=== PATIENT | female | born 1955 | race Caucasian/White ===

== ENCOUNTER 2017-07-25 12:27 | Outpatient (CLI) | payer MEDICARE, MEDICAID ==
[2017-07-25 13:21] LABS: Hemoglobin 13.5 g/dL (12.0-16.0)
[2017-07-25 13:36] LABS: Albumin 3.9 g/dL (3.4-4.8); Anion Gap 13 mmol/L (10-20); BUN (Urea Nitrogen) 19 mg/dL (9.8-20.1); Calc. Creatinine Clearance 0 mL/min (70-130); Calcium 9.4 mg/dL (7.8-10.44); Carbon Dioxide 22 mmol/L (23-31); Chloride 108 mmol/L (98-107); Estimated GFR-MDRD 42; Glucose 124 mg/dL (80-115); Magnesium 1.9 mg/dL (1.6-2.6); Phosphorus 2.9 mg/dL (2.3-4.7); Potassium 3.7 mmol/L (3.5-5.1); Sodium 139 mmol/L (136-145)
[2017-07-25 18:45] LABS: Protein, Urine Random Quant Less than 10 mg/dL
== END 2017-07-25 12:28 | disposition home or self-care (01) ==
LOC: MADLAB 12:27
PROVIDERS: ATTEND Internal Medicine Nephrology
DX: I12.9 Hypertensive chronic kidney disease with stage 1 through stage 4 chronic kidney disease, or unspecified chronic kidney disease (principal); N18.3 Chronic kidney disease, stage 3 (moderate)
CPT/HCPCS: 36415; 80048; 82040; 82306; 82570; 83735; 83970; 84100; 84156; 85014; 85018

== ENCOUNTER 2017-09-10 16:53 | Emergency (ER) | payer MEDICARE, MEDICAID ==
[~2017-09-10 16:53] MED LIST: Sodium Chloride 0.9% 1,000 ML BAG ONE
[2017-09-10 17:37] LABS: #Basophils 0.1 thou/uL (0.0-0.2); #Eosinphils 0.3 thou/uL (0.0-0.7); #Lymphocytes 1.8 thou/uL (1.20-3.40); #Monocytes 0.9 thou/uL (0.11-0.59); #Neutrophils 10.7 thou/uL (1.40-6.50); %Basophils 0.8 % (0.0-1.0); %Eosinophils 2.2 % (0.0-10.0); %Lymphocytes 13.2 % (21.0-51.0); %Monocytes 6.3 % (0.0-10.0); %Neutrophils 77.5 % (42.0-75.0); Hemoglobin 13.5 g/dL (12.0-16.0); Mean Corpuscular HGB CONC 32.5 g/dL (32.0-36.0); Mean Corpuscular Hemoglobin 30.3 pg (27.0-31.0); Mean Corpuscular Volume 93.3 fl (81.0-99.0); Mean Platelet Volume 9.8 fL (7.4-10.4); Platelet Count 174 thou/uL (130-400); RBC Distribution Width 12.7 % (11.5-14.5); Red Blood Cell (RBC) Count 4.44 mill/uL (4.20-5.40); White Blood Cell (WBC) Count 13.8 thou/uL (4.8-10.8)
[2017-09-10 17:47] LABS: CKMB 1.4 ng/mL (0-6.6); Troponin I Less than 0.010 ng/mL (< 0.028)
[2017-09-10 17:50] LABS: ALT (SGPT) 20 U/L (8-55); AST (SGOT) 9 U/L (5-34); Albumin 3.7 g/dL (3.4-4.8); Alkaline Phosphatase 111 U/L (40-150); Anion Gap 15 mmol/L (10-20); BUN (Urea Nitrogen) 12 mg/dL (9.8-20.1); Calc. Creatinine Clearance 0 mL/min (70-130); Calcium 9.5 mg/dL (7.8-10.44); Carbon Dioxide 24 mmol/L (23-31); Chloride 104 mmol/L (98-107); Estimated GFR-MDRD 39; Globulin 3.4 g/dL (2.4-3.5); Glucose 230 mg/dL (80-115); Lipase 29 U/L (8-78); Potassium 3.9 mmol/L (3.5-5.1); Protein, Total 7.1 g/dL (6.0-8.3); Sodium 139 mmol/L (136-145)
[2017-09-10] MEDS ORDERED: Ondansetron HCl/PF 4 MG/2 ML Vial ONE (18:13)
[2017-09-10 18:35] LABS: Bilirubin Negative (Negative); Blood, Urine Negative (Negative); Clarity Clear (Clear); Glucose, Urine (Dipstick) Negative (Negative); Leukocyte Negative (Negative); Nitrite Negative (Negative); Protein, Urine (Dipstick) 30 mg/dL (Neg-Trace); Urobilinogen 0.2 mg/dL (0.2-1.0)
[2017-09-10] MEDS ORDERED: Morphine 10 MG/ML VIAL ONE (18:39)
[2017-09-10 18:43] LABS: Bacteria/HPF 1+ HPF (None Seen); RBC/HPF 0-3 HPF (0-3); WBC/HPF 0-3 HPF (0-3)
--- NOTE | 2017-09-10 18:47 | RAD ---
PORTABLE CHEST ONE VIEW: 09/10/17 at 5:57 p.m. HISTORY: Dyspnea. FINDINGS: Comparison is made with the exam of 11/02/15. The heart size is normal. There is continued elevation of the right hemidiaphragm. No focal areas of consolidation, pneumothorax, parris pulmonary edema or pleural effusions are seen. IMPRESSION: No acute process. POS: [facility]
[2017-09-10] MEDS ORDERED: traMADol HCl 50 MG TAB ONE ×2 (19:54→20:02)
[2017-09-10] MEDS ORDERED: cefTRIAXone\\ROCEPHIN 1 GM VIAL ONE (19:55)
== END 2017-09-10 20:46 | disposition home or self-care (01) ==
LOC: MADERS 16:53
DX: J44.1 Chronic obstructive pulmonary disease with (acute) exacerbation (principal); J20.9 Acute bronchitis, unspecified; K52.9 Noninfective gastroenteritis and colitis, unspecified; G47.30 Sleep apnea, unspecified; E11.9 Type 2 diabetes mellitus without complications; I10 Essential (primary) hypertension; J45.909 Unspecified asthma, uncomplicated; F41.9 Anxiety disorder, unspecified; F32.9 Major depressive disorder, single episode, unspecified; F17.210 Nicotine dependence, cigarettes, uncomplicated
CPT/HCPCS: 36415; 71010; 80053; 81003; 81015; 82553; 83605; 83690; 83880; 84484; 85025; 85379; 87086; 93005; 96361; 96365; 96375; J0696; J2270; J2405; J7050

== ENCOUNTER 2018-02-22 19:33 | Emergency (ER) | payer MEDICARE, MEDICAID ==
[~2018-02-22 19:33] MED LIST changes: +Donnatal Elixir 16.2 MG/5 ML UDCUP ONE; +Iopamidol 370 76% 100 ML VIAL ONE; +Sodium Chloride 0.9% 100 ML BAG ONE
[2018-02-22] MEDS ORDERED: Mag-Al Plus 1200 MG/1200 MG/120 MG/30 ML UDCUP ONE (20:14)
[2018-02-22] MEDS ORDERED: Ondansetron ODT 4 MG TAB ONE (20:14)
[2018-02-22] MEDS ORDERED: Lidocaine Viscous Sol 2% 15 ml UD Cup ONE (20:14)
[2018-02-22] MEDS ORDERED: Donnatal Elixir 16.2 MG/5 ML UDCUP ONE (20:14)
[2018-02-22 20:34] LABS: #Basophils 0.1 thou/uL (0.0-0.2); #Eosinphils 0.5 thou/uL (0.0-0.7); #Lymphocytes 1.5 thou/uL (1.20-3.40); #Monocytes 1.4 thou/uL (0.11-0.59); #Neutrophils 13.2 thou/uL (1.40-6.50); %Basophils 0.8 % (0.0-1.0); %Eosinophils 3.2 % (0.0-10.0); %Lymphocytes 8.8 % (21.0-51.0); %Monocytes 8.3 % (0.0-10.0); Hemoglobin 12.9 g/dL (12.0-16.0); Mean Corpuscular HGB CONC 31.7 g/dL (32.0-36.0); Mean Corpuscular Hemoglobin 29.6 pg (27.0-31.0); Mean Corpuscular Volume 93.4 fl (81.0-99.0); Mean Platelet Volume 8.9 fL (7.4-10.4); Platelet Count 296 thou/uL (130-400); RBC Distribution Width 15.4 % (11.5-14.5); Red Blood Cell (RBC) Count 4.36 mill/uL (4.20-5.40); White Blood Cell (WBC) Count 16.7 thou/uL (4.8-10.8)
[2018-02-22 20:43] LABS: Clarity Hazy (Clear); Glucose, Urine (Dipstick) 100 mg/dL (Negative); Leukocyte Negative (Negative); Nitrite Negative (Negative); Protein, Urine (Dipstick) 100 mg/dL (Neg-Trace); pH, Urine 5.5 (5.0-9.0)
[2018-02-22 20:44] LABS: Bilirubin Large (Negative); Blood, Urine Small (Negative)
[2018-02-22 20:45] LABS: Bacteria/HPF 3+ HPF (None Seen)
[2018-02-22 20:52] LABS: CKMB 0.4 ng/mL (0-6.6); Troponin I Less than 0.010 ng/mL (< 0.028)
[2018-02-22] MEDS ORDERED: Pantoprazole 40 MG VIAL ONE (21:10)
[2018-02-22] MEDS ORDERED: Piperacillin/Tazobactam 4.5 GM VIAL ONE (21:10)
--- NOTE | 2018-02-22 21:10 | RAD ---
ACUTE ABDOMINAL SERIES: Indication: Abdominal pain. FINDINGS: Lungs are clear. Cardiomediastinal silhouette is within normal limits. No pneumoperitoneum is evident . Bowel gas pattern is nonspecific but without evidence of obstruction. No suspicious calcification i s evident. No acute osseous abnormality is evident. IMPRESSION: No acute abnormality. POS: [facility]
[2018-02-22] MEDS ORDERED: Promethazine HCl 25 MG/ML VIAL ONE (21:18)
[2018-02-22 21:20] LABS: ALT (SGPT) 173 U/L (8-55); AST (SGOT) 192 U/L (5-34); Albumin 3.3 g/dL (3.4-4.8); Alkaline Phosphatase 748 U/L (40-150); Anion Gap 18 mmol/L (10-20); BUN (Urea Nitrogen) 18 mg/dL (9.8-20.1); Bilirubin, Total 17.1 mg/dL (0.2-1.2); Calc. Creatinine Clearance 0 mL/min (70-130); Calcium 10.2 mg/dL (7.8-10.44); Carbon Dioxide 22 mmol/L (23-31); Chloride 102 mmol/L (98-107); Estimated GFR-MDRD 36; Globulin 4.7 g/dL (2.4-3.5); Glucose 138 mg/dL (80-115); Sodium 138 mmol/L (136-145)
[2018-02-22 21:24] LABS: Lipase 7712 U/L (8-78)
--- NOTE | 2018-02-22 22:48 | CT ---
CT OF THE ABDOMEN AND PELVIS WITH IV CONTRAST: Indication: Abdominal pain. FINDINGS: There is marked intrahepatic and extrahepatic biliary ductal dilatation. There is a 6 mm calculus wit hin the distal common bile duct. No main pancreatic ductal dilatation is evident. No peripancreatic i nflammatory stranding is grossly evident. The spleen measures 1.6 cm. There are two separate cysts in volving the superior pole of the right kidney measuring 2.4 and 2 cm respectively. Left kidney is nor mal appearing. Appendix is not definitely seen. There is a lobulated mixed solid and cystic lesion involving the lef t adnexa measurin 8.3 cm. The ureters, bladder, rectum, perirectal soft tissues unremarkable. Scattered degenerative and osteoarthritic change. No acute osseous abnormality is evident. IMPRESSION: 1. Choledocholithiasis with prominent intrahepatic and extrahepatic biliary ductal dilation. GI consu ltation is recommended. 2. Mixed solid and cystic lesion involving the left adnexa. Follow up pelvic ultrasound is recommende d for additional characterization. This could be performed after the patient's acute symptoms have ab ated. 3. Nonvisualization of the appendix. 4. Right renal cysts. 5. Colonic diverticulosis. POS: [facility]
== END 2018-02-22 22:16 | disposition short-term general hospital (02) ==
LOC: MADERS 19:33
DX: K83.1 Obstruction of bile duct (principal); K85.10 Biliary acute pancreatitis without necrosis or infection; E11.9 Type 2 diabetes mellitus without complications; I10 Essential (primary) hypertension; J44.9 Chronic obstructive pulmonary disease, unspecified; F41.9 Anxiety disorder, unspecified; F32.9 Major depressive disorder, single episode, unspecified; G47.30 Sleep apnea, unspecified; F17.210 Nicotine dependence, cigarettes, uncomplicated; Z79.84 Long term (current) use of oral hypoglycemic drugs; Z79.899 Other long term (current) drug therapy
CPT/HCPCS: 36415; 74022; 74177; 80053; 81003; 81015; 82150; 82553; 83690; 84484; 85025; 87086; 96365; 96375; C9113; J2543; J2550; J7050; Q0162

== ENCOUNTER 2018-08-09 19:36 | Emergency (ER) | payer MEDICARE, MEDICAID | END 2018-08-09 20:08 | disposition home or self-care (01) | LOC: MADERS 19:36 | DX: M25.542 Pain in joints of left hand (principal); G47.30 Sleep apnea, unspecified; E11.9 Type 2 diabetes mellitus without complications; I10 Essential (primary) hypertension; J44.9 Chronic obstructive pulmonary disease, unspecified; F41.9 Anxiety disorder, unspecified; F32.9 Major depressive disorder, single episode, unspecified; F17.210 Nicotine dependence, cigarettes, uncomplicated; Z79.84 Long term (current) use of oral hypoglycemic drugs; Z79.899 Other long term (current) drug therapy | CPT/HCPCS: 99281 ==

== ENCOUNTER 2018-12-15 10:58 | Emergency (ER) | payer MEDICARE, MEDICAID ==
[2018-12-15] MEDS ORDERED: Insulin Regular 300 UNITS/3 ML VIAL ONE (11:20)
[2018-12-15] MEDS ORDERED: Sodium Chloride 0.9% 1,000 ML ONE ×2 (11:20→13:28)
[2018-12-15 12:04] LABS: #Basophils 0.2 thou/uL (0.0-0.2); #Eosinphils 0.3 thou/uL (0.0-0.7); #Lymphocytes 2.4 thou/uL (1.20-3.40); #Monocytes 0.5 thou/uL (0.11-0.59); #Neutrophils 4.6 thou/uL (1.40-6.50); %Basophils 1.9 % (0.0-1.0); %Eosinophils 3.8 % (0.0-10.0); %Lymphocytes 30.2 % (21.0-51.0); %Monocytes 6.5 % (0.0-10.0); %Neutrophils 57.6 % (42.0-75.0); Hemoglobin 14.4 g/dL (12.0-16.0); Mean Corpuscular HGB CONC 33.2 g/dL (32.0-36.0); Mean Corpuscular Hemoglobin 31.2 pg (27.0-31.0); Mean Platelet Volume 11.6 fL (7.4-10.4); Platelet Count 153 thou/uL (130-400); RBC Distribution Width 12.3 % (11.5-14.5); Red Blood Cell (RBC) Count 4.63 mill/uL (4.20-5.40); White Blood Cell (WBC) Count 7.9 thou/uL (4.8-10.8)
[2018-12-15 12:17] LABS: Bilirubin Negative (Negative); Blood, Urine Small (Negative); Clarity Cloudy (Clear); Glucose, Urine (Dipstick) >=1000 mg/dL (Negative); Leukocyte Negative (Negative); Nitrite Negative (Negative); Protein, Urine (Dipstick) Negative (Neg-Trace); Specific Gravity, Urine 1.015 (1.005-1.030); pH, Urine 5.5 (5.0-9.0)
[2018-12-15 12:18] LABS: ALT (SGPT) 28 U/L (8-55); AST (SGOT) 20 U/L (5-34); Albumin 4.2 g/dL (3.4-4.8); Alkaline Phosphatase 122 U/L (40-150); Anion Gap 15 mmol/L (10-20); BUN (Urea Nitrogen) 17 mg/dL (9.8-20.1); Bilirubin, Total 1.2 mg/dL (0.2-1.2); Calc. Creatinine Clearance 0 mL/min (70-130); Calcium 9.6 mg/dL (7.8-10.44); Carbon Dioxide 24 mmol/L (23-31); Chloride 102 mmol/L (98-107); Estimated GFR-MDRD 41; Globulin 3.1 g/dL (2.4-3.5); Glucose 455 mg/dL (80-115); Potassium 4.3 mmol/L (3.5-5.1); Protein, Total 7.3 g/dL (6.0-8.3); Sodium 137 mmol/L (136-145)
[2018-12-15 12:22] LABS: WBC/HPF 0-3 HPF (0-3)
[2018-12-15 12:23] LABS: Bacteria/HPF 2+ HPF (None Seen)
== END 2018-12-15 14:50 | disposition home or self-care (01) ==
LOC: MADERS 10:58
DX: E11.65 Type 2 diabetes mellitus with hyperglycemia (principal); J44.9 Chronic obstructive pulmonary disease, unspecified; F41.9 Anxiety disorder, unspecified; F32.9 Major depressive disorder, single episode, unspecified; I10 Essential (primary) hypertension; Z71.6 Tobacco abuse counseling; Z79.899 Other long term (current) drug therapy; Z79.84 Long term (current) use of oral hypoglycemic drugs
CPT/HCPCS: 36415; 36416; 80053; 81003; 81015; 82010; 83605; 85025; 96374; 96376; 99406; J1815; J7050

== ENCOUNTER 2018-12-19 18:23 | Emergency (ER) | payer MEDICARE, MEDICAID ==
[2018-12-19] MEDS ORDERED: Sodium Chloride 0.9% 1,000 ML ONE ×2 (19:08→19:43)
[2018-12-19] MEDS ORDERED: Ondansetron PF 4 MG/2 ML Vial ONE (19:08)
--- NOTE | 2018-12-19 19:16 | RAD ---
RADIOGRAPH CHEST 1 VIEW: 12/19/18 HISTORY: 63-year-old female with dyspnea. FINDINGS: There are no air space densities, pulmonary edema, pneumothorax, or cardiomegaly. The lateral costop hrenic angles are sharp. IMPRESSION: No acute cardiopulmonary findings. jn [] POS: [facility]
[2018-12-19 19:34] LABS: ALT (SGPT) 24 U/L (8-55); AST (SGOT) 14 U/L (5-34); Albumin 4.1 g/dL (3.4-4.8); Alkaline Phosphatase 119 U/L (40-150); Anion Gap 17 mmol/L (10-20); BUN (Urea Nitrogen) 14 mg/dL (9.8-20.1); Calc. Creatinine Clearance 0 mL/min (70-130); Calcium 10.1 mg/dL (7.8-10.44); Carbon Dioxide 23 mmol/L (23-31); Chloride 102 mmol/L (98-107); Estimated GFR-MDRD 39; Globulin 3.1 g/dL (2.4-3.5); Glucose 521 mg/dL (80-115); Magnesium 1.5 mg/dL (1.6-2.6); Potassium 4.3 mmol/L (3.5-5.1); Protein, Total 7.2 g/dL (6.0-8.3); Sodium 138 mmol/L (136-145)
[2018-12-19] MEDS ORDERED: Insulin Regular 300 UNITS/3 ML VIAL ONE (19:42)
[2018-12-19 19:43] LABS: Base Excess-Venous -0.3 mmol/L (0 (+/- 2.5)); Bicarbonate (HCO3v) 25.6 mmol/L (22.0-29.0); CO2 Tension (PvCO2) 45.6 mmHg (41.0-51.0); Calcium, Ionized 1.19 mmol/L (1.12-1.32); O2 Tension (PvO2) 52.6 mmHg (35.0-45.0); Potassium 4.3 mmol/L (3.4-4.7); pH (Venous) 7.358 (7.35-7.45)
[2018-12-19 19:44] LABS: Hemoglobin 14.1 g/dL (12.0-16.0); Mean Corpuscular HGB CONC 32.6 g/dL (32.0-36.0); Mean Corpuscular Hemoglobin 31.1 pg (27.0-31.0); Mean Corpuscular Volume 95.3 fL (78.0-98.0); Mean Platelet Volume 12.2 fL (7.4-10.4); Platelet Count 134 thou/uL (130-400); RBC Distribution Width 12.1 % (11.5-14.5); Red Blood Cell (RBC) Count 4.54 mill/uL (4.20-5.40); White Blood Cell (WBC) Count 7.1 thou/uL (4.8-10.8)
[2018-12-19 19:53] LABS: Phosphorus 3.2 mg/dL (2.3-4.7)
[2018-12-19 19:54] LABS: #Basophils 0.1 thou/uL (0.0-0.2); #Eosinphils 0.3 thou/uL (0.0-0.7); #Lymphocytes 1.7 thou/uL (1.20-3.40); #Monocytes 0.5 thou/uL (0.11-0.59); #Neutrophils 4.5 thou/uL (1.40-6.50); %Basophils 1.6 % (0.0-1.0); %Eosinophils 4.6 % (0.0-10.0); %Lymphocytes 24.2 % (21.0-51.0); %Monocytes 7.3 % (0.0-10.0); %Neutrophils 62.4 % (42.0-75.0)
== END 2018-12-19 22:10 | disposition home or self-care (01) ==
LOC: MADERS 18:23
DX: E11.65 Type 2 diabetes mellitus with hyperglycemia (principal); J44.9 Chronic obstructive pulmonary disease, unspecified; I10 Essential (primary) hypertension; F41.9 Anxiety disorder, unspecified; F32.9 Major depressive disorder, single episode, unspecified; F17.210 Nicotine dependence, cigarettes, uncomplicated; Z79.899 Other long term (current) drug therapy; Z79.84 Long term (current) use of oral hypoglycemic drugs
CPT/HCPCS: 36416; 71045; 80053; 82330; 82803; 83690; 83735; 84100; 84484; 85025; 93005; 94640; 94760; 96361; 96374; 96375; J1815; J2405; J7050; J7620

== ENCOUNTER 2022-12-30 11:36 | Outpatient (CLI) | payer MEDICARE, MEDICAID ==
[2022-12-30 11:54] LABS: #Basophils 0.1 thou/uL (0.0-0.2); #Eosinphils 0.3 thou/uL (0.0-0.7); #Lymphocytes 1.4 thou/uL (1.20-3.40); #Monocytes 0.3 thou/uL (0.11-0.59); #Neutrophils 3.9 thou/uL (1.40-6.50); %Basophils 1.5 % (0.0-1.0); %Eosinophils 5.4 % (0.0-10.0); %Lymphocytes 23.5 % (21.0-51.0); %Monocytes 5.6 % (0.0-10.0); Hemoglobin 13.2 g/dL (12.0-16.0); Mean Corpuscular HGB CONC 32.6 g/dL (32.0-36.0); Mean Corpuscular Hemoglobin 28.5 pg (27.0-31.0); Mean Corpuscular Volume 87.2 fl (78.0-98.0); Mean Platelet Volume 10.8 fL (7.4-10.4); Platelet Count 124 10x3/uL (130-400); RBC Distribution Width 13.3 % (11.5-14.5); Red Blood Cell (RBC) Count 4.65 mill/uL (4.20-5.40); White Blood Cell (WBC) Count 6.1 10x3/uL (4.8-10.8)
[2022-12-30 12:06] LABS: ALT (SGPT) 19 U/L (8-55); AST (SGOT) 15 U/L (5-34); Alkaline Phosphatase 93 U/L (40-110); Anion Gap 16 mmol/L (10-20); BUN (Urea Nitrogen) 11 mg/dL (9.8-20.1); Bilirubin, Total 0.9 mg/dL (0.2-1.2); Calc. Creatinine Clearance 0 mL/min (70-130); Calcium 9.3 mg/dL (7.8-10.44); Carbon Dioxide 25 mmol/L (23-31); Chloride 108 mmol/L (98-107); Estimated GFR 41; Globulin 3.2 g/dL (2.4-3.5); Glucose 138 mg/dL (80-115); Potassium 3.6 mmol/L (3.5-5.1); Protein, Total 7.2 g/dL (5.8-8.1); Sodium 145 mmol/L (136-145)
[2022-12-30 17:24] LABS: Hemoglobin A1c 5.8 % (4.0-6.0)
== END 2022-12-30 11:37 | disposition home or self-care (01) ==
LOC: MADLAB 11:36
PROVIDERS: ATTEND Internal Medicine
DX: E11.9 Type 2 diabetes mellitus without complications (principal); G47.33 Obstructive sleep apnea (adult) (pediatric); R06.09 Other forms of dyspnea; J32.9 Chronic sinusitis, unspecified
CPT/HCPCS: 36415; 70220; 71046; 80053; 83036; 84443; 85025